=== PATIENT | female | born 1985 | race Two or more races ===

== ENCOUNTER 2016-09-03 17:05 | Outpatient (CLI) | payer OTHER ==
[~2016-09-03] VITALS: Ht 165.1 cm; Wt 100.0 kg
[~2016-09-03 17:05] MED LIST: ADDERALL 15 MG15 MG PO; IBUPROFEN800 MG PO; PRENATAL 1+1)(P1 TAB PO
== END 2016-09-03 20:00 | disposition disaster alternative care site (69) ==
LOC: GOBM 17:05 → GOBS 17:05 → GOBM 20:00
DX: O47.03 False labor before 37 completed weeks of gestation, third trimester (principal); Z3A.37 37 weeks gestation of pregnancy
CPT/HCPCS: G0463

== ENCOUNTER 2016-09-22 06:35 | Inpatient (IN) | payer OTHER ==
[~2016-09-22] VITALS: Ht 167.6 cm; Wt 102.0 kg
--- NOTE | ~2016-09-22 | CON ---
PATIENT'S NAME: SUNIL [facility] AGE: 31 Y [address] ROOM: [place] [address] LOCATION: [facility] ADMIT DATE: 09/22/2016 Consultation DISCHARGE DATE: FAMILY PHYSICIAN: Irish López MD ATTENDING PHYSICIAN: Irish López DATE OF CONSULTATION: 09/23/2016 REFERRING PHYSICIAN: Rubio Scherer MD REQUESTING PHYSICIAN: Irish López M.D. REASON FOR CONSULTATION: Evaluation of bleeding. HISTORY OF PRESENT ILLNESS: The patient is a 31-year-old female, -0-0-1, who I was asked to come and assess this afternoon for evaluation of her bleeding. The patient had an induction of labor yesterday for postdates and delivered a viable male . Delivery was complicated by a protracted labor course at 9.5 cm of dilation as well as mild shoulder dystocia that was relieved by Barak maneuver. The patient was doing well during the period and had a normal hemoglobin this morning; however, passed some large clots shortly before noon and had some increased free flow. She was given a dose of p.o. and IM Methergine. A bedside exam was performed by Dr. López, who believed that the fundus was firm, but I was asked to come and assess and give my further opinion as to whether or not anything else needs to be done. The patient appeared comfortable when I entered the room, although did appear slightly pale. She did not have any free flow on her checks at that time. Vital signs were stable at that time. PAST MEDICAL HISTORY: Noncontributory. She does have some obesity. PAST SURGICAL HISTORY: Noncontributory. RECORDS MANAGEMENT DIRECTOR HISTORY: The patient is a . Her last delivery was complicated by a vacuum delivery. As stated above, this delivery was complicated by mild shoulder dystocia and a protracted labor course at 9.5 cm. SOCIAL HISTORY: The patient denies any tobacco, alcohol, or drug use. [facility] 31 Y [address] ROOM: [place] [address] LOCATION: [facility] ADMIT DATE: 09/22/2016 Consultation DISCHARGE DATE: FAMILY PHYSICIAN: Irish López MD ATTENDING PHYSICIAN: Irish López MEDICATIONS: Please see medication list. PHYSICAL EXAMINATION: VITAL SIGNS: Reviewed. GENERAL: She appears awake and alert, does appear slightly pale, and appears tired. CARDIAC: Regular rate and rhythm. LUNGS: Clear to auscultation bilaterally. ABDOMEN: Soft. Fundus is firm and slightly below the umbilicus. Minimal free flow is expressed with fundal exam. PELVIC: A bedside ultrasound was performed with no obvious placental tissue seen within the uterus. There did appear to be some clot present. A bimanual exam was performed and approximately 100 mL of clot removed from the lower uterine segment. Again, fundus was noted to be firm during this entire time. She had minimal free flow on exam after I cleared the clot. LABORATORY DATA: Labs were reviewed. Hemoglobin was 11.2, down from her previous of 11.4 this morning. ASSESSMENT AND PLAN: This is a 31-year-old with an episode of hemorrhage this morning. I will continue to follow with the patient. I agree with the recommendation to continue her on p.o. Methergine. She has also received 1 dose intramuscularly. I would recommend giving an additional dose of Hemabate intramuscularly. IV access has been re-established and she is currently getting maintenance fluids. A repeat hemoglobin was advised and this was checked at 1600 hours. Hemoglobin had dropped slightly, but was otherwise stable. She has had minimal free flow since that time. The patient was advised that if she continues to have issues with free flow that is not responding to medications that I would recommend proceeding with dilation and curettage, and she was agreeable to that intervention if it is found to be necessary. STONE BREWER MD GT/modl /[id number] d: 09/24/16 0142 t: 10/06/16 1210, CONSULTATION REPORT
--- NOTE | ~2016-09-22 | CON ---
PATIENT'S NAME: SHIVAM BARBER [facility] AGE: 31 Y [address] ROOM: [address] [address] LOCATION: BS ADMIT DATE: 09/22/2016 Consultation DISCHARGE DATE: FAMILY PHYSICIAN: Irish López MD ATTENDING PHYSICIAN: Irish López DATE OF CONSULTATION: 09/22/2016 REFERRING PHYSICIAN: Rubio Scherer MD OBSTETRICAL CONSULTATION Dr. Irish López consulted me for a 2, para 1, who delivered by tough vacuum delivery with her first baby at term and that baby weighed 8 pounds 11 ounces. The baby is [id number]. She presented today for induction and has had on and off variable decelerations with the Pitocin. The Pitocin had been turned off and she remained at a rim. The Pitocin was eventually turn back onto 1 milliunit per minute. She did not progress beyond a rim. She was at rim and 0 station. I had her push through 1 contraction and the rim went away and she brought the vertex down to the +2 station. She pushed through former contractions and delivered spontaneously for Dr. López. She delivered a baby, who weighed 8 pounds 13 ounces. All was going well in the delivery room at this point. LAILA SADLER MD KHP/modl /[id number] d: 09/23/16 0353 t: 10/04/16 0920, CONSULTATION REPORT
--- NOTE | ~2016-09-22 | OR ---
PATIENT'S NAME: SHIVAM BARBER [facility] AGE: 31 Y [address] ROOM: [place] [address] LOCATION: [facility] ADMIT DATE: 09/22/2016 OR/Procedure Report DISCHARGE DATE: FAMILY PHYSICIAN: Irish López MD ATTENDING PHYSICIAN: Irish López SURGEON: Irish López MD CABLE FORMER: DATE OF PROCEDURE: 09/22/2016 PREOPERATIVE DIAGNOSES: 1. Postdates intrauterine . 2. Term with favorable cervix and desire for induction of labor. POSTOPERATIVE DIAGNOSES: 1. Postdates intrauterine . 2. Term with favorable cervix and desire for induction of labor. 3. Mild shoulder dystocia. 4. LGA male . PROCEDURE PERFORMED: Cytotec and Pitocin induced vaginal delivery. ESTIMATED BLOOD LOSS: 150 mL. ANESTHESIA: Epidural. FINDINGS: Male infant, weight 8 pounds 13 ounces and Apgars 7 and 9. Intact placenta with 3-vessel cord. INDICATIONS: This is a G2, P1-0-0-1 female who is at term and actually postdates with favorable cervix, who desired induction of labor. DESCRIPTION OF PROCEDURE: The patient presented to Labor and Delivery. Cytotec was placed, 4 hours later Pitocin was started. She progressed along a fairly normal labor curve. Rupture of membrane was done by myself with the cervical check, with productin of clear fluid. Max Pitocin dose was 13 milliunits. did have variable deceleration, required discontinuing the Pitocin when she was about 7 cm dilated and this recovered. We were able to restart the Pitocin, but never got above 3 milliunits due to some deep variable decelerations. She progressed to just a rim of cervix and stayed that way for about 2 hours. We tried to restart Pitocin, but anything above 1 milliunit, infant did not tolerate well. I did ask Dr. Germain to come assess the patient as she had some arrest of descent and a difficult vacuum delivery with her last . Dr. Germain pushed with the patient and she was able to push through this rim to complete. With the next couple contractions, she was able to bring the head to position in the left occiput anterior position. There was a loose nucal cord, reduced at the perineum. Turtle sign was noted. There was a mild shoulder dystocia relieved with Barak maneuver with delivery of the anterior shoulder, which was the left. PATIENT'S NAME: SHIVAM BARBER [facility] AGE: 31 Y [address] ROOM: [address] [address] LOCATION: [facility] ADMIT DATE: 09/22/2016 OR/Procedure Report DISCHARGE DATE: FAMILY PHYSICIAN: Irish López MD ATTENDING PHYSICIAN: Irish López The remainder of delivered, was noted to have decreaed tone just after delivery. The cord was clamped and cut and infant was quickly handed to awaiting nursery nurses. Apgars were 7 and 9. Plaenta delivered spontaneously with gentle tration. There were no cervical, vaginal or perineal lacerations. A small amout of membrane was noted protruding from the cervix, easily removd with ringed forceps. Bleeding was minimal. Sponge and needle counts were correct at the end of procedure. Both mom and baby were doing well at the end of the procedure. MD DAWIT BECKMAN/sanjuana /[id number] d: 09/23/16 0420 t: 09/23/16 1340, OPERATIVE SUMMARY
[2016-09-22 08:04] LABS: BASOPHIL % 0.3 %; EOSINOPHIL # 0.1 K/uL (0.0-0.5); EOSINOPHIL % 1.5 %; HEMATOCRIT 36.7 % (33.0-46.0); HEMOGLOBIN 11.9 g/dL (11.0-15.0); IMMATURE GRANULOCYTE # 0.1 K/uL (0.0-0.3); IMMATURE GRANULOCYTE % 1.1 %; LYMPHOCYTE # 2.9 K/uL (0.8-4.0); LYMPHOCYTE % 31.1 %; MCH 24.1 pg (27.0-34.0); MCHC 32.4 gm/dL (32.0-36.5); MCV 74.4 fl (83.0-98.0); MONOCYTE # 0.7 K/uL (0.0-1.0); MONOCYTE % 7.5 %; MPV 9.6 fl (9.4-12.4); NEUTROPHIL # (ANC) 5.5 K/uL (1.8-7.8); NEUTROPHIL % 58.5 %; NRBC % 0 /100WBC (0-0.00); PLATELET COUNT 277 K/uL (150-450); RBC 4.93 M/uL (3.50-5.50); WBC 9.4 K/uL (4.0-11.0)
[2016-09-23 05:28] LABS: BASOPHIL # 0.1 K/uL (0.0-0.2); BASOPHIL % 0.4 %; EOSINOPHIL # 0.1 K/uL (0.0-0.5); EOSINOPHIL % 0.4 %; HEMATOCRIT 36.4 % (33.0-46.0); HEMOGLOBIN 11.7 g/dL (11.0-15.0); IMMATURE GRANULOCYTE # 0.1 K/uL (0.0-0.3); IMMATURE GRANULOCYTE % 0.7 %; LYMPHOCYTE # 3.3 K/uL (0.8-4.0); LYMPHOCYTE % 18.9 %; MCH 23.8 pg (27.0-34.0); MCHC 32.1 gm/dL (32.0-36.5); MONOCYTE # 1.6 K/uL (0.0-1.0); MONOCYTE % 9.2 %; MPV 9.5 fl (9.4-12.4); NEUTROPHIL # (ANC) 12.1 K/uL (1.8-7.8); NEUTROPHIL % 70.4 %; NRBC % 0 /100WBC (0-0.00); PLATELET COUNT 266 K/uL (150-450); RBC 4.92 M/uL (3.50-5.50); RDW-CV 15.1 % (11.9-14.6)
[2016-09-23 05:30] LABS: WBC 17.2 K/uL (4.0-11.0)
--- NOTE | 2016-09-23 05:30 | NUR ---
Last VS: T:98.2 P:87 R: 14 BP: 115/54 Pain ratin. Last pain med: Motrin Medicated at: 0352 Effective: Yes Breasts: NON-TENDER Nipples: INTACT Fundus: FIRM, EVEN 1 DOWN Lochia: SMALL Epis/Perineum: INTACT Voiding well: YES Significant event:
[2016-09-23 12:29] LABS: BASOPHIL # 0.1 K/uL (0.0-0.2); BASOPHIL % 0.3 %; EOSINOPHIL # 0.1 K/uL (0.0-0.5); EOSINOPHIL % 0.8 %; HEMOGLOBIN 11.2 g/dL (11.0-15.0); IMMATURE GRANULOCYTE # 0.1 K/uL (0.0-0.3); IMMATURE GRANULOCYTE % 0.7 %; LYMPHOCYTE # 3.6 K/uL (0.8-4.0); LYMPHOCYTE % 24.3 %; MCH 24.3 pg (27.0-34.0); MCHC 32.9 gm/dL (32.0-36.5); MCV 73.8 fl (83.0-98.0); MONOCYTE # 1.2 K/uL (0.0-1.0); MONOCYTE % 8.3 %; MPV 9.8 fl (9.4-12.4); NEUTROPHIL # (ANC) 9.7 K/uL (1.8-7.8); NEUTROPHIL % 65.6 %; NRBC % 0 /100WBC (0-0.00); PLATELET COUNT 251 K/uL (150-450); RBC 4.61 M/uL (3.50-5.50); RDW-CV 15.1 % (11.9-14.6); WBC 14.8 K/uL (4.0-11.0)
--- NOTE | 2016-09-23 14:26 | NUR ---
1220-DR. CORNEJO IN ROOM TO ASSESS PT WITH INCREASED BLEEDING/PASSING CLOTS. STERILE SPEC EXAM WITH 1 EGG SIZE CLOT EXPELLED. Francesco BREWER MD CONSULTED, HERE AT 1240. BEDSIDE ULTRASOUND PERFORMED ALONG WITH STERILE VAG EXAM. ORDERS RECEIVED.
[2016-09-23 16:11] LABS: HEMATOCRIT 33.4 % (33.0-46.0); HEMOGLOBIN 10.9 g/dL (11.0-15.0)
--- NOTE | 2016-09-23 16:53 | NUR ---
Significant Event: Follow up: VSS, heavy bleed with clots, measured 429 gms loss, plus 2 8-10 cm clots in toliet. Hbg 11.9, 11.7, 10.9 @ 1600. SL dc'd, restarted with LR @ 125/hr. Voiding well, hemabate given, "IM" methergine, then po q 6 hrs, x 5 doses. Ultrasound done by Dr. Jaquez, vag with speculum by Dr. López, no tissue found. Motrin po @ 1411, percocet 2) @ 1456.Dr. Scherer to round tomorrow.
[2016-09-23 21:59] LABS: BASOPHIL % 0.2 %; EOSINOPHIL # 0.1 K/uL (0.0-0.5); EOSINOPHIL % 0.8 %; HEMATOCRIT 29.6 % (33.0-46.0); HEMOGLOBIN 9.9 g/dL (11.0-15.0); IMMATURE GRANULOCYTE # 0.1 K/uL (0.0-0.3); IMMATURE GRANULOCYTE % 0.5 %; LYMPHOCYTE # 4.4 K/uL (0.8-4.0); LYMPHOCYTE % 26.6 %; MCH 24.7 pg (27.0-34.0); MCHC 33.4 gm/dL (32.0-36.5); MCV 73.8 fl (83.0-98.0); MONOCYTE # 1.3 K/uL (0.0-1.0); MPV 9.1 fl (9.4-12.4); NEUTROPHIL # (ANC) 10.5 K/uL (1.8-7.8); NEUTROPHIL % 63.9 %; NRBC % 0 /100WBC (0-0.00); PLATELET COUNT 242 K/uL (150-450); RBC 4.01 M/uL (3.50-5.50); RDW-CV 15.2 % (11.9-14.6)
[2016-09-23 22:01] LABS: WBC 16.4 K/uL (4.0-11.0)
[2016-09-24 05:26] LABS: BASOPHIL # 0.1 K/uL (0.0-0.2); BASOPHIL % 0.5 %; EOSINOPHIL # 0.2 K/uL (0.0-0.5); EOSINOPHIL % 1.6 %; HEMATOCRIT 29.3 % (33.0-46.0); HEMOGLOBIN 9.4 g/dL (11.0-15.0); IMMATURE GRANULOCYTE # 0.1 K/uL (0.0-0.3); IMMATURE GRANULOCYTE % 0.7 %; LYMPHOCYTE # 3.8 K/uL (0.8-4.0); LYMPHOCYTE % 37.7 %; MCH 24.2 pg (27.0-34.0); MCHC 32.1 gm/dL (32.0-36.5); MCV 75.5 fl (83.0-98.0); MONOCYTE # 0.7 K/uL (0.0-1.0); MONOCYTE % 7.4 %; MPV 9.4 fl (9.4-12.4); NEUTROPHIL # (ANC) 5.2 K/uL (1.8-7.8); NEUTROPHIL % 52.1 %; NRBC % 0 /100WBC (0-0.00); PLATELET COUNT 220 K/uL (150-450); RBC 3.88 M/uL (3.50-5.50); RDW-CV 15.4 % (11.9-14.6)
[2016-09-24] MEDS ORDERED: FEOSOL325 MG PO (11:13)
[2016-09-24 15:10] LABS: BASOPHIL # 0.1 K/uL (0.0-0.2); BASOPHIL % 0.5 %; EOSINOPHIL # 0.2 K/uL (0.0-0.5); EOSINOPHIL % 1.5 %; HEMATOCRIT 30.8 % (33.0-46.0); HEMOGLOBIN 9.8 g/dL (11.0-15.0); IMMATURE GRANULOCYTE # 0.1 K/uL (0.0-0.3); IMMATURE GRANULOCYTE % 0.7 %; LYMPHOCYTE # 3.4 K/uL (0.8-4.0); LYMPHOCYTE % 33.5 %; MCHC 31.8 gm/dL (32.0-36.5); MCV 75.5 fl (83.0-98.0); MONOCYTE # 0.6 K/uL (0.0-1.0); MONOCYTE % 5.9 %; MPV 9.5 fl (9.4-12.4); NEUTROPHIL # (ANC) 5.9 K/uL (1.8-7.8); NEUTROPHIL % 57.9 %; NRBC % 0 /100WBC (0-0.00); PLATELET COUNT 250 K/uL (150-450); RBC 4.08 M/uL (3.50-5.50); RDW-CV 15.4 % (11.9-14.6); WBC 10.2 K/uL (4.0-11.0)
--- NOTE | 2016-09-24 16:14 | NUR ---
Last VS: T:97.8 P:77 R: 14 BP: 130/76 Pain rating: . Last pain med: percocet/motrin 0930 Medicated at: Effective: Breasts: , Nipples: Fundus: firm and even to 1 finger down. Lochia: small flow Epis/Perineum: bottom ok Voiding well: Significant event: . patient start ed voideing after we took the catheter out this a.m. pulled sotomayor out 0820 450 ml, 0940 175 ml+ and at 1100 voided in the shower. and 1320 voided 400ml and then 1510 voided 500ml with a residual of 15 ml per bladder scanner. planning home tonight after 1700 methergine.
== END 2016-09-24 17:40 | disposition disaster alternative care site (69) | DRG 774 ==
LOC: GOBM 06:35 → GOBS 06:35 → GOBM 06:36 → GOBS 17:33
PROVIDERS: Family Medicine; Obstetrics & Gynecology; ADMIT Family Medicine
PROC: 3E033VJ Introduction of Other Hormone into Peripheral Vein, Percutaneous Approach (ICD-10-PCS; principal; 2016-09-22)
PROC: 4A1HX4Z Monitoring of Products of Conception, Cardiac Electrical Activity, External Approach (ICD-10-PCS; principal; 2016-09-22)
PROC: 10E0XZZ Delivery of Products of Conception, External Approach (ICD-10-PCS; principal; 2016-09-22)
PROC: 10907ZC Drainage of Amniotic Fluid, Therapeutic from Products of Conception, Via Natural or Artificial Opening (ICD-10-PCS; principal; 2016-09-22)
DX: O48.0 Post-term pregnancy (principal); O72.1 Other immediate postpartum hemorrhage; O66.0 Obstructed labor due to shoulder dystocia; Z3A.40 40 weeks gestation of pregnancy; Z37.0 Single live birth
CPT/HCPCS: J2001; J2210; J2590; J3010; J7120

== ENCOUNTER 2016-09-28 00:36 | Emergency (ER) | payer OTHER ==
--- NOTE | ~2016-09-28 | ER ---
PATIENT'S NAME: SUNIL [facility] AGE: 31 Y [address] ROOM: [place] [address] LOCATION: [facility] ADMIT DATE: 09/28/2016 ER/Outpatient Report DISCHARGE DATE: 09/28/2016 FAMILY PHYSICIAN: Irish López MD ATTENDING PHYSICIAN: Claus Ayoub Admission date and time documented on the medical record. I saw the patient at 0250 hours. CHIEF COMPLAINT/HISTORY OF PRESENT ILLNESS: Urinary urgency, frequency, dysuria with hematuria. She had some chills, but no fever or sweats. No diarrhea. No nausea or vomiting. Appetite has been fair to okay. No lightheadedness, dizziness, syncope, or near syncope. No fall or trauma. No recent cold, coughs, flus, fever, chills, or sweats. No headache, eyes, ears, nose, throat, neck, or spine pain. No joint or muscle swelling, redness, or pain. No skin eruptions or rash. No history of neuro changes, psych issues, endocrine problems. HOME MEDICATIONS: See medication list on chart. ALLERGIES: NONE. SOCIAL HISTORY: Nonsmoker, nondrinker. SIGNIFICANT PAST MEDICAL HISTORY: Negative. OPERATIONS: Tear duct surgery, repair. The patient had a vaginal delivery on 09/22/2016, she had some urinary retention following day and she was catheterized x2. Catheter was left in overnight. Since that time, she has had increased pelvic pain and urinary pain. REVIEW OF SYSTEMS: All systems reviewed by me are negative with the exception of those discussed in the history of present illness. PHYSICAL EXAMINATION: VITAL SIGNS: Temperature 98.8, pulse 96, respirations 18, blood pressure 149/90, O2 saturation on room air is 98%. HEENT: Negative. LUNGS: Clear. PATIENT'S NAME: [facility] AGE: 31 Y [address] ROOM: [place] [address] LOCATION: [facility] ADMIT DATE: 09/28/2016 ER/Outpatient Report DISCHARGE DATE: 09/28/2016 FAMILY PHYSICIAN: Irish López MD ATTENDING PHYSICIAN: Claus Ayoub HEART: Regular. ABDOMEN: Flat, nondistended, soft. Some tenderness suprapubically. No palpable masses. No organomegaly. No CVA tenderness. NEUROVASCULAR: Intact. LABORATORY DATA AND X-RAYS: Urine shows 2 to 5 whites, 50 to 100 reds, 2 to 5 epithelial cells, rare bacteria, nitrites negative; culture pending. Because of her urinary retention, we did put a Mayen catheter in. We did get 600 mL of urine after catheter was placed. We did remove the catheter at the patient's dismissal from the emergency department. The patient is going to see how the next 6 to 12 hours go. She is to contact her personal physician in about 6 to 8 hours. We will see if her personal physician agrees that she may need to have a cystoscopy because of her hematuria and possible bladder spasm and urinary retention problems. Did give her two Tylenol No. 3 with Codeine here in the emergency room for her pain. IMPRESSION: Dysuria with urgency, frequency, and urinary retention, etiology uncertain. She does have hematuria. PLAN: The patient dismissed home. Observation. Activity as tolerated. Diet and fluids as tolerated. Tylenol No. 3 one to two every 4 to 6 hours as needed for pain, #30. Talk with Dr. López in about 6 to 8 hours. Urine culture is pending. Discussed with the patient the possible side effects of other medications such as bladder spasm medications and so forth may have an adverse effect on her breast-fed baby. She understands this and does not want to take a risk. MD INGRIS NGUYEN/modl /[id number] d: 09/28/16 0409 t: 09/28/16 1809, OUTPATIENT REPORT
[~2016-09-28 00:36] MED LIST changes: +FEOSOL325 MG PO
[2016-09-28 01:39] LABS: BILIRUBIN URINE NEGATIVE (NEGATIVE); BLOOD URINE 250 /UL (NEGATIVE); COLOR URINE RED (YELLOW); GLUCOSE URINE NEGATIVE (NEGATIVE); KETONE URINE NEGATIVE (NEGATIVE); LEUKOCYTES URINE 25 /UL (NEGATIVE); NITRITE URINE NEGATIVE (NEGATIVE); PROTEIN URINE 100 mg/dL (NEGATIVE); TURBIDITY URINE CLEAR (CLEAR); UROBILINOGEN URINE NORMAL (NORMAL)
[2016-09-28 01:47] LABS: BACTERIA URINE RARE (NEGATIVE); RBC URINE 50-100 #/HPF (NEGATIVE)
== END 2016-09-28 03:06 | disposition disaster alternative care site (69) ==
LOC: GMED 00:36
PROVIDERS: Emergency Medicine
PROC: 0T9B70Z Drainage of Bladder with Drainage Device, Via Natural or Artificial Opening (ICD-10-PCS; principal; 2016-09-28)
DX: O99.89 Other specified diseases and conditions complicating pregnancy, childbirth and the puerperium (principal); R33.9 Retention of urine, unspecified; R31.9 Hematuria, unspecified; R30.0 Dysuria; Z79.899 Other long term (current) drug therapy

== ENCOUNTER → 2016-10-03 | Outpatient (CLI) | payer OTHER | END | disposition disaster alternative care site (69) | LOC: GRAD 16:28 | DX: R33.9 Retention of urine, unspecified (principal); O90.89 Other complications of the puerperium, not elsewhere classified; N32.89 Other specified disorders of bladder ==